=== PATIENT | male | born 1980 ===

== ENCOUNTER 2016-12-13 17:25 | Inpatient (IN) | payer OTHER ==
[2016-12-13] MEDS ORDERED: Iohexol 240 (50 ml) PO ONE (18:16)
[2016-12-13] MEDS ORDERED: Sodium Chloride 0.9% 1,000 ML IV STA ×2 (18:16→21:48)
[2016-12-13] MEDS ORDERED: Piperacillin/Tazobact 4.5 GM in Sodium Chloride 0.9% 100 ML IVPB ONE (18:30)
[2016-12-13 18:40] LABS: BASO # 0.1 K/uL (0.0-0.2); BASO % 0.4 % (0.0-2.0); EOS # 0.1 K/uL (0.0-0.7); EOS % 0.3 % (0.0-4.0); HEMATOCRIT 45.4 % (35.0-51.0); LYMPH # 1.4 K/uL (1.0-4.3); LYMPH % 8.5 % (20.0-40.0); MEAN CELL VOLUME 87.6 fl (80.0-94.0); MEAN CORPUSCULAR HEMOGLOBIN 29.3 pg (27.0-31.0); MEAN CORPUSCULAR HGB CONC 33.4 g/dL (33.0-37.0); MEAN PLATELET VOLUME 7.5 fl (7.2-11.7); MONO # 1.4 K/uL (0.0-0.8); MONO % 8.3 % (0.0-10.0); NEUT # 13.8 K/uL (1.8-7.0); NEUT % 82.5 % (50.0-75.0); NRBC % 0.1 % (0.0-0.0); PLATELET COUNT 333 K/uL (130-400); RED CELL DISTRIBUTION WIDTH 13.6 % (11.5-14.5); WHITE BLOOD COUNT 16.7 K/uL (4.8-10.8)
[2016-12-13 18:45] LABS: VENOUS BLOOD GAS BASE EXCESS 5.4 mmol/L (0.0-2.0); VENOUS BLOOD GAS PCO2 42 mmHg (40-60); VENOUS BLOOD PH 7.46 (7.32-7.43)
[2016-12-13 18:50] LABS: ALB/GLOB RATIO 1.1 (1.0-2.1); ALKALINE PHOSPHATASE 58 U/L (38-126); ALT/SGPT 47 U/L (21-72); AST/SGOT 26 U/L (17-59); BILIRUBIN,TOTAL 0.8 mg/dl (0.2-1.3); BLOOD UREA NITROGEN 12 mg/dl (9-20); CALCIUM 9.5 mg/dL (8.4-10.2); CARBON DIOXIDE 27 mmol/L (22-30); CHLORIDE 99 mmol/L (98-107); GFR AFRICAN-AMERICAN > 60; GLUCOSE,RANDOM 114 mg/dL (75-110); LIPASE 62 U/L (23-300); POTASSIUM 4.4 MMOL/L (3.6-5.0); SODIUM 138 mmol/l (132-148); TOTAL PROTEIN 8.2 G/DL (6.3-8.2)
--- NOTE | 2016-12-13 19:13 | ED PDOC ---
HPI: General Adult Time Seen by Provider: 12/13/16 17:30 Chief Complaint (Nursing): Abdominal Pain Chief Complaint (Provider): Pain, Nausea, Fever History Per: Patient History/Exam Limitations: no limitations Have you had recent travel within the past 21 days to any of the following countries: [place], [place], [place] or [place]?: No Current Symptoms Are (Timing): Still Present Additional Complaint(s): Salinas Dobbs, a 36 year old male, presents to the ED with increased nausea , pain, fever and decreased PO intake. The patient states that she was seen in [place] and was diagnosed with diverticulitis. She states that she has been having fevers, chills, vomiting and a small amount of diarrhea. Past Medical History Reviewed: Historical Data, Nursing Documentation, Vital Signs Vital Signs: Last Vital Signs Temp 98.4 F 12/14/16 07:48 Pulse 73 12/14/16 07:48 Resp 17 12/14/16 07:48 BP 150/87 12/14/16 07:48 Pulse Ox 98 12/14/16 10:35 - Medical History PMH: Diverticulitis Other PMH: Appendicitis - Family History Family History: States: Unknown Family Hx - Social History Current smoker - smoking cessation education provided: No Alcohol: None Drugs: Denies - Home Medications Home Medications: Ambulatory Orders Medication Instructions Recorded No Known Home Med 12/13/16 - Allergies Allergies/Adverse Reactions: Allergies Allergy/AdvReac Type Severity Reaction Status Date / Time No Known Allergies Allergy Verified 12/13/16 17:29 Review of Systems Constitutional: Positive for: Fever, Chills Gastrointestinal: Positive for: Nausea, Vomiting, Diarrhea (small amounts of diarrhea) Physical Exam - Reviewed Nursing Documentation Reviewed: Yes Vital Signs Reviewed: Yes - Physical Exam Appears: Positive for: Non-toxic, No Acute Distress (Appears dehydrated and weak.) Skin: Positive for: Normal Color, Warm, Dry Eye Exam: Positive for: Normal appearance, EOMI, PERRL ENT: Positive for: Normal ENT Inspection Neck: Positive for: Normal, Painless ROM, Supple Cardiovascular/Chest: Positive for: Regular Rate, Rhythm, Chest Non Tender. Negative for: Tachycardia Respiratory: Positive for: Normal Breath Sounds. Negative for: Wheezing, Respiratory Distress Gastrointestinal/Abdominal: Positive for: Bowel Sounds, Soft, Tenderness ( Diffuse abdominal tenderness but more tender on R). Negative for: Mass, Distended, Guarding, Rebound Back: Positive for: Normal Inspection Extremity: Positive for: Normal ROM. Negative for: Tenderness, Deformity, Swelling Neurologic/Psych: Positive for: Alert, Oriented, Gait - Laboratory Results Result Diagrams: 12/14/16 04:30 12/14/16 04:30 - ECG O2 Sat by Pulse Oximetry: 98 (RA) Pulse Ox Interpretation: Normal Medical Decision Making Medical Decision Makin:49 Initial Impression: 36 year old female presenting with increased nausea, pain and fever Initial Plan: * VG shock panel * CT ABD Pelvis PO and IV contrast * Comp Metabolic Panel * Lipase * Udip * CBC * Morphine 4 mg * NS 1000mls 999mls/hr * Pepcid 20mg IVP * Zosyn 4.5gm NS 100m IVPB * Zofran 4mg IV * Blood Culture * Urine culture * Admit 18:17 * Urinalysis * Reevaluation Scribe Attestation Documented by Rosario Claire acting as a scribe for Diana Mratínez MD. Provider Attestation: All medical record entries made by the Scribe were at my direction and personally dictated by me. I have reviewed the chart and agree that the record accurately reflects my personal performance of the history, physical exam, medical decision making, and the department course for this patient. I have also personally directed, reviewed, and agree with the discharge instructions and disposition. Disposition - Clinical Impression Clinical Impression: Diverticulitis, Bowel perforation, Abdominal pain - Patient ED Disposition Is Patient to be Admitted: Transfer of Care - Disposition Disposition: Transfer of Care Disposition Time: 19:00 Condition: GUARDED Patient Signed Over To: Dc Hoyt
[2016-12-13 19:19] LABS: URINE COLOR YELLOW (YELLOW)
[2016-12-13 19:20] LABS: RBC URINE 7 /hpf (0-3); URINE BILIRUBIN NEGATIVE (NEGATIVE); URINE BLOOD MODERATE (NEGATIVE); URINE GLUCOSE (UA) NEGATIVE (Normal); URINE KETONE 80 mg/dL (NEGATIVE); URINE LEUKOCYTE ESTERASE TRACE Leu/uL (Negative); URINE PROTEIN 30 mg/dL (NEGATIVE); WBC URINE 3 /hpf (0-5)
[2016-12-13 19:21] LABS: GRANULAR CAST 1 /lpf (0-1); URINE BACTERIA RARE (<OCC)
[2016-12-13 19:27] LABS: NEUTROPHIL 84 % (42-75); TOTAL CELLS COUNTED 100
[2016-12-13 19:29] LABS: LARGE PLATELETS PRESENT
--- NOTE | 2016-12-13 19:50 | ED PDOC ---
- Laboratory Results Result Diagrams: 12/13/16 18:35 12/13/16 18:35 - ECG O2 Sat by Pulse Oximetry: 98 (RA) - Critical Care Total Time (In Min): 60 Medical Decision Making Medical Decision Making: Patient signed out to provider from Dr. Martínez at [address] scan. 21:20 CT Abdomen and Pelvis With Intravenous Contrast IMPRESSION: 1. Approximately 10 cm segment of small bowel thickening with associated inflammatory/phlegmonous changes is noted, correlate for infectious/ inflammatory enteritis. There is 4.8 cm pocket of pneumoperitoneum/free air and adjacent smaller foci of free air , concerning for small bowel perforation. Clinical correlation and surgical evaluation is recommended. 2. There is a segment of wall thickening at the junction of the sigmoid and descending colon, consistent in appearance with acute diverticulitis. There are small foci of extraluminal air within the adjacent pericolonic mesenteric fat, consistent with a contained diverticular perforation. As an underlying malignancy cannot be entirely excluded, a follow-up examination after a course of treatment is recommended if clinically warranted. The remainder of the findings are as described above. After reading report additional labs were ordered. * CXR * VBG shock panel * EKG * Surgical Consult * 21:[address] Jain (surgical [facility]) awaiting call back from Dr. Mcdonough. 21:[address] Up for hospitalist admission to ICU 22:05 Dr. Mcdonough called back and he was made aware of case and he stated he would speak further with the resident. 23:00 Patient will be admitted for stabilization/tc and possible OR intervention after surgical consult. Dx: Small bowel perforation and Acute Diverticulitis Condition: guarded Scribe Attestation Documented by Rosario Claire acting as a scribe for Dc Hoyt MD. Provider Attestation: All medical record entries made by the Scribe were at my direction and personally dictated by me. I have reviewed the chart and agree that the record accurately reflects my personal performance of the history, physical exam, medical decision making, and the department course for this patient. I have also personally directed, reviewed, and agree with the discharge instructions and disposition. Disposition Discussed With Dr.: Rosanne Up (Dr Mcdonough) Doctor Will See Patient In The: Hospital Counseled Patient/Family Regarding: Studies Performed, Diagnosis - Clinical Impression Clinical Impression: Diverticulitis, Bowel perforation - POA Present On Arrival: None - Disposition Disposition: Admitted as In-Patient Disposition Time: 18:15 Condition: GUARDED
[2016-12-13] MEDS ORDERED: Ciprofloxacin 400mg/200ml D5W 400 MG/200 ML BAG IV STA (21:38)
[2016-12-13] MEDS ORDERED: METRONIDAZOLE IV STA (21:38)
--- NOTE | 2016-12-13 21:59 | CP.PCM.HP ---
History of Present Illness - History of Present Illness History of Present Illness: CC: abd pain HPI: This is a 36 y/o male with HTN and Hx of kidney stones who comes in with abd pain. Patient notes his pain started on Monday after a flight back from a vacation in [place]. He went to [facility] initially, was dx'ed with diverticulitis and d /c'ed with PO antibiotics. His pain acutely got worse today and so he came to the ER. States nothing makes pain better. Has had some nausea. No f/c. States never had diverticulitis before. ROS: 14 systems reviewed and negative otehr than HPI MHx: HTN, kidney stones SHx: None Allergies: NKDA Medications: as per med rec Family Hx: DM2 runs in family Social Hx: Lives with family, no tobacco or EtOH Present on Admission - Present on Admission Any Indicators Present on Admission: No Past Patient History - Past Social History Alcohol: None Drugs: Denies - GASTROINTESTINAL Hx Diverticulitis: Yes - PSYCHIATRIC Hx Substance Use: No - SURGICAL HISTORY Hx Surgeries: No - ANESTHESIA Hx Anesthesia: No Meds Allergies/Adverse Reactions: Allergies Allergy/AdvReac Type Severity Reaction Status Date / Time No Known Allergies Allergy Verified 12/13/16 17:29 Physical Exam - Constitutional Appears: No Acute Distress - Head Exam Head Exam: ATRAUMATIC, NORMOCEPHALIC - Eye Exam Eye Exam: EOMI, PERRL - ENT Exam ENT Exam: Mucous Membranes Moist - Neck Exam Neck exam: Positive for: Full Rom - Respiratory Exam Respiratory Exam: Clear to Auscultation Bilateral, NORMAL BREATHING PATTERN - Cardiovascular Exam Cardiovascular Exam: REGULAR RHYTHM, +S1, +S2 - GI/Abdominal Exam GI & Abdominal Exam: Normal Bowel Sounds, Tenderness - Extremities Exam Extremities exam: Positive for: full ROM, normal inspection - Neurological Exam Neurological exam: Alert, CN II-XII Intact, Oriented x3 - Psychiatric Exam Psychiatric exam: Normal Affect, Normal Mood - Skin Skin Exam: Dry, Warm Results - Vital Signs Recent Vital Signs: Last Vital Signs Temp 98.4 F 12/13/16 17:30 Pulse 93 H 12/13/16 21:43 Resp 18 12/13/16 21:43 BP 142/86 12/13/16 21:43 Pulse Ox 98 12/13/16 21:52 - Labs Result Diagrams: 12/13/16 18:35 12/13/16 18:35 - Imaging and Cardiology CT scan - abdomen Status: Report reviewed by me (diverticulitis with perf and abscess) Assessment & Plan (1) Diverticulitis Assessment and Plan: 36 y/o with bowel perforation and abscess in setting of diverticulitis. -Admit to ICU -Patient pending possible surgery this evening; NPO for now, IVF -Continue Zosyn 3.375 q6h IV -Pain mgmt per scale with IV morphine, Zofran IV for n/v -SCDs for dvt ppx Status: Acute (2) Bowel perforation Status: Acute (3) DVT prophylaxis Status: Acute
[2016-12-13] MEDS ORDERED: Lactated Ringer's 1,000 ML IV SCH (22:00)
--- NOTE | 2016-12-13 22:58 | CP.PCM.CON ---
<Farhad Mcqueen - Last Filed: 12/13/16 22:52> History of Present Illness - History of Present Illness History of Present Illness: Surgery: Dr. Mcdonough CC: Abd pain HPI: 36M w. pmh of HTN and kidney stones present to ED w. abd pain. Pain initially started on Monday while he was flying back from vacation. Upon landing he went to [facility] and was dx w. diverticulitis and d/c w. cipro/flagyl. Initially pt was improving until this AM. Pt had acute worsening of abd pain. Pain is mostly suprapubic and sharp. Pain is constant. Pain is accompanied by Fever/sweat, no chills. Pt denies N/V but has had multiple episodes of diarrhea , non-bloody. Pt does have JACKMAN, no blurred vision, no CP/palpitations, no SOB/ cough, no hematuria/dysuria. In ED CT had findings consistent w. diverticulitis w. contained perforation. PMH: HTN, kidney stones PSH: appendectomy, no prior colonoscopy Meds: MAR reviewed NKDA Social: +ETOH, no tobacco/drugs Fhx: No Fhx of colon CA/colitis Review of Systems - Review of Systems All systems: reviewed and no additional remarkable complaints except (HPI) Past Patient History - Past Social History Alcohol: None Drugs: Denies - CARDIAC Hx Cardiac Disorders: Yes (htn) - PULMONARY Hx Respiratory Disorders: No - NEUROLOGICAL Hx Neurological Disorder: No - HEENT Hx HEENT Problems: No - RENAL Hx Chronic Kidney Disease: No - ENDOCRINE/METABOLIC Hx Endocrine Disorders: No - HEMATOLOGICAL/ONCOLOGICAL Hx Blood Disorders: No - INTEGUMENTARY Hx Dermatological Problems: No - MUSCULOSKELETAL/RHEUMATOLOGICAL Hx Musculoskeletal Disorders: No - GASTROINTESTINAL Hx Diverticulitis: Yes - GENITOURINARY/GYNECOLOGICAL Hx Genitourinary Disorders: No - PSYCHIATRIC Hx Psychophysiologic Disorder: No - SURGICAL HISTORY Hx Surgeries: No - ANESTHESIA Hx Anesthesia: No Meds Allergies/Adverse Reactions: Allergies Allergy/AdvReac Type Severity Reaction Status Date / Time No Known Allergies Allergy Verified 12/13/16 17:29 - Medications Medications: Current Medications Acetaminophen (Tylenol 325mg Tab) 650 mg PO Q6 PRN PRN Reason: Fever >100.4 F Famotidine (Pepcid) 20 mg IVP Q12 [facility] Hydromorphone HCl (Dilaudid) 0.5 mg IVP Q4 PRN PRN Reason: Pain, moderate (4-7) Piperacillin Sod/Tazobactam (Sod 3.375 gm/ Sodium Chloride) 100 mls @ 100 mls/ hr IVPB Q6 [facility] Lactated Ringer's (Lactated Ringer's) 1,000 mls @ 999 mls/hr IV .Q1H1M [facility] Lactated Ringer's (Lactated Ringer's) 1,000 mls @ 125 mls/hr IV .Q8H [facility] Ondansetron HCl (Zofran Inj) 4 mg IVP Q6H PRN PRN Reason: Nausea/Vomiting Physical Exam - Constitutional Appears: Non-toxic, No Acute Distress - Head Exam Head Exam: ATRAUMATIC, NORMOCEPHALIC - Eye Exam Eye Exam: EOMI - ENT Exam ENT Exam: Mucous Membranes Moist, Normal External Ear Exam - Neck Exam Neck exam: Positive for: Full Rom - Respiratory Exam Respiratory Exam: NORMAL BREATHING PATTERN. absent: Accessory Muscle Use, Respiratory Distress - GI/Abdominal Exam GI & Abdominal Exam: Soft, Tenderness (mild suprapubic). absent: Distended, Firm, Guarding, Rebound, Rigid - Extremities Exam Extremities exam: Negative for: calf tenderness, pedal edema - Back Exam Back exam: absent: CVA tenderness (L), CVA tenderness (R) - Neurological Exam Neurological exam: Alert, Oriented x3 - Psychiatric Exam Psychiatric exam: Normal Affect, Normal Mood - Skin Skin Exam: Dry, Normal Color, Warm Results - Vital Signs Recent Vital Signs: Last Vital Signs Temp 99 F 12/13/16 22:17 Pulse 93 H 12/13/16 22:17 Resp 18 12/13/16 22:17 BP 142/86 12/13/16 22:17 Pulse Ox 96 12/13/16 22:01 - Labs Result Diagrams: 12/13/16 18:35 12/13/16 18:35 - Imaging and Cardiology CT scan - abdomen Status: Image reviewed by me, Report reviewed by me Assessment & Plan - Assessment and Plan (Free Text) Assessment: 36M w. sigmoid diverticulitis and contained perforation -Conservative management -NPO -LR bolus x1, then LR maintenance @ 125cc/hr -zosyn -dilaudid -zofran -serial abd exams -GI/DVT prophylaxis -will follow closely -case discussed in detail wJuancho Mcqueen PGY2 <Michael Mcdonough - Last Filed: 12/14/16 09:16> History of Present Illness - History of Present Illness History of Present Illness: Patient was seen and examined at the bedside. Agree with resident's note above Meds - Medications Medications: Current Medications Acetaminophen (Tylenol 325mg Tab) 650 mg PO Q6 PRN PRN Reason: Fever >100.4 F Famotidine (Pepcid) 20 mg IVP Q12 [facility] Hydromorphone HCl (Dilaudid) 0.5 mg IVP Q4 PRN PRN Reason: Pain, moderate (4-7) Piperacillin Sod/Tazobactam (Sod 3.375 gm/ Sodium Chloride) 100 mls @ 100 mls/ hr IVPB Q6 [facility] Last Admin: 12/14/16 04:34 Dose: 100 mls/hr Lactated Ringer's (Lactated Ringer's) 1,000 mls @ 999 mls/hr IV .Q1H1M [facility] Last Admin: 12/14/16 05:51 Dose: Not Given Lactated Ringer's (Lactated Ringer's) 1,000 mls @ 125 mls/hr IV .Q8H [facility] Last Admin: 12/14/16 01:23 Dose: 125 mls/hr Ondansetron HCl (Zofran Inj) 4 mg IVP Q6H PRN PRN Reason: Nausea/Vomiting Results - Vital Signs Recent Vital Signs: Last Vital Signs Temp 98.4 F 12/14/16 07:48 Pulse 73 12/14/16 07:48 Resp 17 12/14/16 07:48 BP 150/87 12/14/16 07:48 Pulse Ox 95 12/14/16 07:48 - Labs Result Diagrams: 12/14/16 04:30 12/14/16 04:30 Labs: Laboratory Results - last 24 hr 12/14/16 12/14/16 04:30 04:30 WBC 14.1 H RBC 4.77 Hgb 13.9 Hct 41.7 MCV 87.4 MCH 29.2 MCHC 33.4 RDW 13.7 Plt Count 311 Sodium 141 Potassium 3.9 Chloride 103 Carbon Dioxide 27 Anion Gap 15 BUN 10 Creatinine 0.9 Est GFR ( Amer) > 60 Est GFR (Non-Af Amer) > 60 Random Glucose 97 Calcium 9.1
[2016-12-13] MEDS: Piperacillin/Tazobact 3.375 GM in Sodium Chloride 0.9% 100 ML IVPB SCH (23:00)
[2016-12-13] MEDS: Lactated Ringer's 1,000 ML IV SCH ×2 (23:27→23:30)
[2016-12-14] MEDS: Lactated Ringer's 1,000 ML IV SCH ×10 (00:47→19:59)
[2016-12-14 04:15] VITALS: BMI 31.1
[2016-12-14] MEDS: Piperacillin/Tazobact 3.375 GM in Sodium Chloride 0.9% 100 ML IVPB SCH ×2 (04:34→09:54)
[2016-12-14 05:28] LABS: HEMATOCRIT 41.7 % (35.0-51.0); MEAN CELL VOLUME 87.4 fl (80.0-94.0); MEAN CORPUSCULAR HEMOGLOBIN 29.2 pg (27.0-31.0); MEAN CORPUSCULAR HGB CONC 33.4 g/dL (33.0-37.0); RED CELL DISTRIBUTION WIDTH 13.7 % (11.5-14.5); WHITE BLOOD COUNT 14.1 K/uL (4.8-10.8)
[2016-12-14 05:42] LABS: BLOOD UREA NITROGEN 10 mg/dl (9-20); CALCIUM 9.1 mg/dL (8.4-10.2); CARBON DIOXIDE 27 mmol/L (22-30); CHLORIDE 103 mmol/L (98-107); GFR AFRICAN-AMERICAN > 60; GLUCOSE,RANDOM 97 mg/dL (75-110); POTASSIUM 3.9 MMOL/L (3.6-5.0); SODIUM 141 mmol/l (132-148)
--- NOTE | 2016-12-14 08:03 | CP.PCM.PN ---
<Marbella Blancas - Last Filed: 12/14/16 08:01> Subjective - Date & Time of Evaluation Date of Evaluation: 12/14/16 Time of Evaluation: 08:01 - Subjective Subjective: General Surgery - Dr. Mcdonough PT [facility]. Pt states his pain is improved this morning from yesterday. He is still having watery diarrhea, normal color. He is NPO. Pt denies any F/C, N /V, SOB/Cp. Objective - Vital Signs/Intake and Output Vital Signs (last 24 hours): Temp Pulse Resp BP Pulse Ox 98.4 F 73 17 150/87 95 12/14/16 07:48 12/14/16 07:48 12/14/16 07:48 12/14/16 07:48 12/14/16 07:48 Intake and Output: 12/14/16 12/14/16 06:59 18:59 Intake Total 1700 Balance 1700 - Medications Medications: Current Medications Acetaminophen (Tylenol 325mg Tab) 650 mg PO Q6 PRN PRN Reason: Fever >100.4 F Famotidine (Pepcid) 20 mg IVP Q12 [facility] Hydromorphone HCl (Dilaudid) 0.5 mg IVP Q4 PRN PRN Reason: Pain, moderate (4-7) Piperacillin Sod/Tazobactam (Sod 3.375 gm/ Sodium Chloride) 100 mls @ 100 mls/ hr IVPB Q6 [facility] Last Admin: 12/14/16 04:34 Dose: 100 mls/hr Lactated Ringer's (Lactated Ringer's) 1,000 mls @ 999 mls/hr IV .Q1H1M [facility] Last Admin: 12/14/16 05:51 Dose: Not Given Lactated Ringer's (Lactated Ringer's) 1,000 mls @ 125 mls/hr IV .Q8H [facility] Last Admin: 12/14/16 01:23 Dose: 125 mls/hr Ondansetron HCl (Zofran Inj) 4 mg IVP Q6H PRN PRN Reason: Nausea/Vomiting - Labs Labs: 12/14/16 04:30 12/14/16 04:30 - Constitutional Appears: No Acute Distress - Head Exam Head Exam: ATRAUMATIC, NORMAL INSPECTION, NORMOCEPHALIC - Eye Exam Eye Exam: Normal appearance - ENT Exam ENT Exam: Mucous Membranes Dry - Respiratory Exam Respiratory Exam: NORMAL BREATHING PATTERN. absent: Respiratory Distress - Cardiovascular Exam Cardiovascular Exam: REGULAR RHYTHM - GI/Abdominal Exam GI & Abdominal Exam: Firm (suprapubic), Guarding, Soft, Tenderness (Suprapubic) . absent: Distended, Rigid, Rebound - Neurological Exam Neurological Exam: Alert, Oriented x3 - Psychiatric Exam Psychiatric exam: Normal Affect, Normal Mood - Skin Skin Exam: Dry, Intact Assessment and Plan - Assessment and Plan (Free Text) Assessment: 36M w. sigmoid diverticulitis and contained perforation -Conservative Tx -Maintain NPO, poss. clear liquids later today or tomorrow -IVF @125/hr -IV Abx: Zosyn -Pain control prn -GI Consult, will need f/u colonoscopy -OOB and Ambulate DW Dr Ceasar Blancas PGY2 <Michael Mcdonough - Last Filed: 12/14/16 09:32> Subjective - Date & Time of Evaluation Time of Evaluation: 09:00 - Subjective Subjective: Patient was seen and examined at the bedside. Agree with resident's note above Objective - Vital Signs/Intake and Output Vital Signs (last 24 hours): Temp Pulse Resp BP Pulse Ox 98.4 F 73 17 150/87 95 12/14/16 07:48 12/14/16 07:48 12/14/16 07:48 12/14/16 07:48 12/14/16 07:48 Intake and Output: 12/14/16 12/14/16 06:59 18:59 Intake Total 1700 Balance 1700 - Medications Medications: Current Medications Acetaminophen (Tylenol 325mg Tab) 650 mg PO Q6 PRN PRN Reason: Fever >100.4 F Famotidine (Pepcid) 20 mg IVP Q12 [facility] Hydromorphone HCl (Dilaudid) 0.5 mg IVP Q4 PRN PRN Reason: Pain, moderate (4-7) Piperacillin Sod/Tazobactam (Sod 3.375 gm/ Sodium Chloride) 100 mls @ 100 mls/ hr IVPB Q6 [facility] Last Admin: 12/14/16 04:34 Dose: 100 mls/hr Lactated Ringer's (Lactated Ringer's) 1,000 mls @ 999 mls/hr IV .Q1H1M [facility] Last Admin: 12/14/16 05:51 Dose: Not Given Lactated Ringer's (Lactated Ringer's) 1,000 mls @ 125 mls/hr IV .Q8H [facility] Last Admin: 12/14/16 01:23 Dose: 125 mls/hr Ondansetron HCl (Zofran Inj) 4 mg IVP Q6H PRN PRN Reason: Nausea/Vomiting - Labs Labs: 12/14/16 04:30 12/14/16 04:30 Assessment and Plan - Assessment and Plan (Free Text) Plan: - Keep NPO - IV fluids - Pain control - Continue Zosyn - GI consult - Repeat labs in am - Will follow
--- NOTE | 2016-12-14 09:15 | RAD ---
HISTORY: admission COMPARISON: No prior. FINDINGS: LUNGS: No active pulmonary disease. PLEURA: No significant pleural effusion identified, no pneumothorax apparent. CARDIOVASCULAR: Normal. OSSEOUS STRUCTURES: No significant abnormalities. VISUALIZED UPPER ABDOMEN: Normal. OTHER FINDINGS: None. IMPRESSION: No active disease.
--- NOTE | 2016-12-14 10:05 | CT ---
PROCEDURE: CT Abdomen and Pelvis with contrast HISTORY: abd pain 6+ months ago patient underwent appendectomy. COMPARISON: None. TECHNIQUE: Contrast dose: 100 cc Omnipaque 300 Radiation dose: Total exam DLP = 1209 mGy-cm. This CT exam was performed using one or more of the following dose reduction techniques: Automated exposure control, adjustment of the mA and/or kV according to patient size, and/or use of iterative reconstruction technique. FINDINGS: LOWER THORAX: Unremarkable. LIVER: Diffuse fatty infiltration of the liver suggested. No gross lesion or ductal dilatation. GALLBLADDER AND BILE DUCTS: Unremarkable. PANCREAS: Unremarkable. No gross lesion or ductal dilatation. SPLEEN: Unremarkable. ADRENALS: Unremarkable. No mass. KIDNEYS AND URETERS: Unremarkable. No hydronephrosis. No solid mass. VASCULATURE: Unremarkable. No aortic aneurysm. BOWEL: The mid to inferior small-bowel loops are grossly abnormal with areas of a amorphous mural thickening, and surrounding mesenteric edema. Small areas of extra luminal air regional to the abnormal small bowel loops which also appear abnormally a contiguous with each other is also suggested. 4 x 2 cm right paracentral anterior intra loop fluid collection is suggested. An early forming abscess here is a consideration. A seroma is another. The sigmoid loops also are abnormal with mural thickening and pericolonic inflammatory changes. These closely approximates the abnormal small bowel loops. Fistulous communication between the colon and small bowel is a consideration given some of the stranding and extra luminal air consistent with "Contained" perforations here. A few diverticuli are present a perforated diverticulitis is also in the differential consideration. The most abnormal a bowel loops however appear small rather than colonic. Inflammatory bowel process is not excluded. The ileum in the cecum however does not appear grossly abnormal. No pericecal fluid collection noted. APPENDIX: Not visualized consistent with its recent removal PERITONEUM: Free fluid/loculated fluid and small pockets of extraluminal air LYMPH NODES: Unremarkable. No enlarged lymph nodes. . BLADDER: Unremarkable. REPRODUCTIVE: Unremarkable. BONES: No acute fracture. OTHER FINDINGS: None. IMPRESSION: Grossly abnormal small large bowel loops in this patient who is 6+ months status post appendectomy. The vast majority of the abnormal bowel loops appear mostly small bowel type -an intrinsic inflammatory bowel pathology here is 1 consideration -nevertheless the pericecal ileum is unremarkable. A sigmoid diverticulosis with inferred concomitant diverticulitis with perforation and fistulous tract to the small bowel loops also needs to be considered. Within the right anterior para central abnormal small-bowel loops is a 5 cm interloop fluid collection -an early abscess here needs to be considered. Surgical consultation recommended. Surgical consultation recommendation and preliminary report provided by Micaela watters
--- NOTE | 2016-12-14 11:55 | CP.PCM.PN ---
Subjective - Date & Time of Evaluation Date of Evaluation: 12/14/16 Time of Evaluation: 11:30 - Subjective Subjective: No fever Abd Pain better no nausea nor vomiting no CP no SOB no cough Objective - Vital Signs/Intake and Output Vital Signs (last 24 hours): Temp Pulse Resp BP Pulse Ox 98.4 F 73 17 150/87 98 12/14/16 07:48 12/14/16 07:48 12/14/16 07:48 12/14/16 07:48 12/14/16 10:36 Intake and Output: 12/14/16 12/14/16 06:59 18:59 Intake Total 1700 Balance 1700 - Medications Medications: Current Medications Acetaminophen (Tylenol 325mg Tab) 650 mg PO Q6 PRN PRN Reason: Fever >100.4 F Last Admin: 12/14/16 09:35 Dose: 650 mg Famotidine (Pepcid) 20 mg IVP Q12 [facility] Last Admin: 12/14/16 09:54 Dose: 20 mg Hydromorphone HCl (Dilaudid) 0.5 mg IVP Q4 PRN PRN Reason: Pain, moderate (4-7) Piperacillin Sod/Tazobactam (Sod 3.375 gm/ Sodium Chloride) 100 mls @ 100 mls/ hr IVPB Q6 [facility] Last Admin: 12/14/16 09:54 Dose: 100 mls/hr Lactated Ringer's (Lactated Ringer's) 1,000 mls @ 999 mls/hr IV .Q1H1M [facility] Last Admin: 12/14/16 09:18 Dose: 999 mls/hr Lactated Ringer's (Lactated Ringer's) 1,000 mls @ 125 mls/hr IV .Q8H [facility] Last Admin: 12/14/16 09:56 Dose: 125 mls/hr Ondansetron HCl (Zofran Inj) 4 mg IVP Q6H PRN PRN Reason: Nausea/Vomiting - Labs Labs: 12/14/16 04:30 12/14/16 04:30 - Constitutional Appears: No Acute Distress - Head Exam Head Exam: NORMAL INSPECTION, NORMOCEPHALIC - Eye Exam Eye Exam: EOMI, Normal appearance, PERRL Pupil Exam: NORMAL ACCOMODATION - ENT Exam ENT Exam: Mucous Membranes Dry, Normal External Ear Exam - Neck Exam Neck Exam: Full ROM. absent: Meningismus - Respiratory Exam Respiratory Exam: NORMAL BREATHING PATTERN. absent: Respiratory Distress - Cardiovascular Exam Cardiovascular Exam: REGULAR RHYTHM, +S1, +S2 - GI/Abdominal Exam GI & Abdominal Exam: Soft, Tenderness (tenderness lower abdomen), Normal Bowel Sounds - Extremities Exam Extremities Exam: Full ROM, Normal Capillary Refill. absent: Calf Tenderness - Back Exam Back Exam: Full ROM. absent: CVA tenderness (L), CVA tenderness (R) - Neurological Exam Neurological Exam: Alert, Awake, CN II-XII Intact, Oriented x3 Neuro motor strength exam: Left Upper Extremity: 5, Right Upper Extremity: 5, Left Lower Extremity: 5, Right Lower Extremity: 5 - Psychiatric Exam Psychiatric exam: Normal Affect, Normal Mood - Skin Skin Exam: Dry, Intact, Normal Color, Warm Assessment and Plan - Assessment and Plan (Free Text) Assessment: 36 y/o gent with , no significant PMH, started having abdominal pain 5 days ago , went to [facility] and was diagnosed to have Diverticulitis and was sent home on PO antibiotics, came to our ED bec of severe abd pain. CT of abdomen : Grossly abnormal small large bowel loops in this patient who is 6+ months status post appendectomy. The vast majority of the abnormal bowel loops appear mostly small bowel type -an intrinsic inflammatory bowel pathology here is 1 consideration -nevertheless the pericecal ileum is unremarkable. A sigmoid diverticulosis with inferred concomitant diverticulitis with perforation and fistulous tract to the small bowel loops also needs to be considered. Within the right anterior para central abnormal small-bowel loops is a 5 cm interloop fluid collection -an early abscess here needs to be considered. (1) Diverticulitis with abscess and contained perforation - pt is being monitored in ICU - NPO , IVF hydration -Continue Zosyn IV - Surgery consulted- rec to cont abx, no surgical intervention -Pain mgmt per scale with IV morphine, Zofran IV for n/v (2) DVT prophylaxis lovenox
--- NOTE | 2016-12-14 15:36 | CARD ---
APPROVED REPORT EKG Measurement Heart [id number] <Conclusion> Normal sinus rhythm Voltage criteria for left ventricular hypertrophy Abnormal ECG
[2016-12-14] MEDS: Piperacillin/Tazobact 4.5 GM in Sodium Chloride 0.9% 100 ML IVPB SCH ×2 (17:09→21:28)
--- NOTE | 2016-12-14 22:07 | CP.CCUPN ---
CCU Subjective - Physician Review Subjective (Free Text): Awake and alert, denies any abdominal pain today, remains NPO as per Surg team. Denies fevers, chills, rigors. No other distress noted. Hemodynamic parameters have been stable. CCU Objective - Vital Signs / Intake & Output Vital Signs (Last 4 hours): Vital Signs Temp Pulse Resp BP Pulse Ox 12/14/16 20:00 80 97 H 148/88 17 L 12/14/16 19:50 98.5 F 77 27 H 143/79 96 Intake and Output (Last 8hrs): Intake & Output 12/14/16 12/14/16 12/14/16 06:59 14:59 22:59 Intake Total 1700 250 Balance 1700 250 Weight 243 lb Intake: IV 1500 250 Intake, Piggyback 200 Other: # Voids Urine, Voided 1 # Bowel Movements 2 - Physical Exam Head: Positive for: Normocephalic Pupils: Positive for: PERRL Extroacular Muscles: Positive for: EOMI Conjunctiva: Positive for: Normal Ears: Positive for: Normal Mouth: Positive for: Moist Mucous Membranes Pharnyx: Positive for: Normal Neck: Positive for: Normal Range of Motion. Negative for: JVD Respiratory/Chest: Positive for: Clear to Auscultation Cardiovascular: Positive for: Regular Rate and Rhythm. Negative for: Murmurs, Rub Abdomen: Positive for: Normal Bowel Sounds. Negative for: Tenderness, Distention, Peritoneal Signs, Rebound, Guarding Lower Extremity: Positive for: Normal Inspection, NORMAL PULSES. Negative for: Edema, CALF TENDERNESS Neurological: Positive for: Motor Func Grossly Intact, Normal Sensory Function Skin: Positive for: Warm. Negative for: Rashes Psychiatric: Positive for: Alert, Oriented x 3 - Medications Active Medications: Active Medications Generic Name Dose Route Start Last Admin Trade Name Freq PRN Reason Stop Dose Admin Acetaminophen 650 mg 12/13/16 22:50 12/14/16 09:35 Tylenol 325mg Tab PO 650 mg Q6 PRN Administration Fever >100.4 F Enoxaparin Sodium 40 mg 12/15/16 09:00 Lovenox SC DAILY [facility] Protocol Famotidine 20 mg 12/14/16 09:00 12/14/16 20:03 Pepcid IVP 20 mg Q12 JORDON Administration Hydromorphone HCl 0.5 mg 12/13/16 22:48 Dilaudid IVP Q4 PRN Pain, moderate (4-7) Lactated Ringer's 1,000 mls @ 999 mls/hr 12/13/16 22:45 12/14/16 09:18 Lactated Ringer's IV 999 mls/hr .Q1H1M J[facility]ON Administration Lactated Ringer's 1,000 mls @ 125 mls/hr 12/13/16 23:00 12/14/16 19:59 Lactated Ringer's IV 125 mls/hr .Q8H J[facility] Administration Piperacillin Sod/Tazobactam 100 mls @ 100 mls/hr 12/14/16 16:00 12/14/16 21: 28 Sod 4.5 gm/ Sodium Chloride IVPB 100 mls/hr Q6 JORDON Administration Ondansetron HCl 4 mg 12/13/16 21:53 Zofran Inj IVP Q6H PRN Nausea/Vomiting - Patient Studies Lab Studies: Lab Studies 12/14/16 12/14/16 Range/Units 04:30 04:30 WBC 14.1 H (4.8-10.8) K/uL RBC 4.77 (4.40-5.90) Mil/uL Hgb 13.9 (12.0-18.0) g/dL Hct 41.7 (35.0-51.0) % MCV 87.4 (80.0-94.0) fl MCH 29.2 (27.0-31.0) pg MCHC 33.4 (33.0-37.0) g/dL RDW 13.7 (11.5-14.5) % Plt Count 311 (130-400) K/uL Sodium 141 (132-148) mmol/l Potassium 3.9 (3.6-5.0) MMOL/L Chloride 103 (98-107) mmol/L Carbon Dioxide 27 (22-30) mmol/L Anion Gap 15 (10-20) BUN 10 (9-20) mg/dl Creatinine 0.9 (0.8-1.5) mg/dL Est GFR ( Amer) > 60 Est GFR (Non-Af Amer) > 60 Random Glucose 97 (75-110) mg/dL Calcium 9.1 (8.4-10.2) mg/dL Laboratory Results - last 24 hr 12/14/16 12/14/16 04:30 04:30 WBC 14.1 H RBC 4.77 Hgb 13.9 Hct 41.7 MCV 87.4 MCH 29.2 MCHC 33.4 RDW 13.7 Plt Count 311 Sodium 141 Potassium 3.9 Chloride 103 Carbon Dioxide 27 Anion Gap 15 BUN 10 Creatinine 0.9 Est GFR ( Amer) > 60 Est GFR (Non-Af Amer) > 60 Random Glucose 97 Calcium 9.1 Radiology Interpretations (Free Text): CT AP results reviewed. Critical Care Progress Note - Extremities/Vascular Does the Patient have a Central Venous Catheter?: No Does the Patient need a Central Venous Catheter?: No Does the Patient have a Correa Catheter?: No Does the Patient need a Correa Catheter?: No - Prophylaxis GI Prophylaxis GI: Pepsid - Prophylaxis DVT Prophylaxis DVT: Lovenox, SCDs - Nutrition Nutrition: Nutrition Category Date Time Status NPO Diet [DIET] Diets 12/13/16 Breakfast Active Assessment/Plan - Assessment and Plan (Free Text) Assessment: 1. Sigmoid Diverticulitis with contained Diverticular abscess. No major perforation as per Surgeon. 2. Hypertension by history Plan: 1. Conservative mgmt and close observation for now. 2. Consider increasing empiric Zosyn dose to full 4.5gm IV Q6H dosing fro intra -abdominal infection. 3. IVF hydration, watch for abdominal fluid sequestration. 4. Observe BP trends, would not treat unless sustained MAP elevation above 110.
[2016-12-15] MEDS: Piperacillin/Tazobact 4.5 GM in Sodium Chloride 0.9% 100 ML IVPB SCH ×4 (04:09→21:41)
[2016-12-15 05:06] LABS: BASO # 0.1 K/uL (0.0-0.2); BASO % 0.4 % (0.0-2.0); EOS # 0.3 K/uL (0.0-0.7); LYMPH # 2.2 K/uL (1.0-4.3); LYMPH % 15.2 % (20.0-40.0); MEAN CELL VOLUME 87.7 fl (80.0-94.0); MEAN CORPUSCULAR HEMOGLOBIN 29.4 pg (27.0-31.0); MEAN CORPUSCULAR HGB CONC 33.6 g/dL (33.0-37.0); MEAN PLATELET VOLUME 7.8 fl (7.2-11.7); MONO % 7.2 % (0.0-10.0); NEUT # 10.6 K/uL (1.8-7.0); NEUT % 75.2 % (50.0-75.0); RED CELL DISTRIBUTION WIDTH 13.4 % (11.5-14.5); WHITE BLOOD COUNT 14.2 K/uL (4.8-10.8)
[2016-12-15 05:17] LABS: ALB/GLOB RATIO 1.1 (1.0-2.1); ALKALINE PHOSPHATASE 47 U/L (38-126); ALT/SGPT 40 U/L (21-72); AST/SGOT 27 U/L (17-59); BILIRUBIN,TOTAL 0.6 mg/dl (0.2-1.3); BLOOD UREA NITROGEN 11 mg/dl (9-20); CALCIUM 9.2 mg/dL (8.4-10.2); CARBON DIOXIDE 27 mmol/L (22-30); CHLORIDE 104 mmol/L (98-107); GFR AFRICAN-AMERICAN > 60; GLUCOSE,RANDOM 90 mg/dL (75-110); POTASSIUM 4.1 MMOL/L (3.6-5.0); SODIUM 143 mmol/l (132-148); TOTAL PROTEIN 7.3 G/DL (6.3-8.2)
[2016-12-15] MEDS: Enoxaparin 40 mg Syringe SC SCH (09:33)
--- NOTE | 2016-12-15 11:16 | CP.PCM.PN ---
Subjective - Date & Time of Evaluation Date of Evaluation: 12/15/16 Time of Evaluation: 11:00 - Subjective Subjective: No fever mild abdominal pain + tenderness on the lower abdomen and some discomfort when he turns or coughs no vomiting no CP no SOB Pt requesting for copy of CT scan films Objective - Vital Signs/Intake and Output Vital Signs (last 24 hours): Temp Pulse Resp BP Pulse Ox 98.4 F 76 18 135/76 96 12/15/16 07:47 12/15/16 07:47 12/15/16 07:47 12/15/16 07:47 12/15/16 07:47 Intake and Output: 12/15/16 12/15/16 06:59 18:59 Intake Total 1450 125 Output Total 750 Balance 700 125 - Medications Medications: Current Medications Acetaminophen (Tylenol 325mg Tab) 650 mg PO Q6 PRN PRN Reason: Fever >100.4 F Last Admin: 12/14/16 09:35 Dose: 650 mg Enoxaparin Sodium (Lovenox) 40 mg SC DAILY [facility] PRN Reason: Protocol Last Admin: 12/15/16 09:33 Dose: 40 mg Famotidine (Pepcid) 20 mg IVP Q12 [facility] Last Admin: 12/15/16 08:19 Dose: 20 mg Hydromorphone HCl (Dilaudid) 0.5 mg IVP Q4 PRN PRN Reason: Pain, moderate (4-7) Lactated Ringer's (Lactated Ringer's) 1,000 mls @ 999 mls/hr IV .Q1H1M [facility] Last Admin: 12/14/16 09:18 Dose: 999 mls/hr Lactated Ringer's (Lactated Ringer's) 1,000 mls @ 125 mls/hr IV .Q8H [facility] Last Admin: 12/14/16 19:59 Dose: 125 mls/hr Piperacillin Sod/Tazobactam (Sod 4.5 gm/ Sodium Chloride) 100 mls @ 100 mls/hr IVPB Q6 [facility] Last Admin: 12/15/16 09:24 Dose: 100 mls/hr Ondansetron HCl (Zofran Inj) 4 mg IVP Q6H PRN PRN Reason: Nausea/Vomiting - Labs Labs: 12/15/16 04:30 12/15/16 04:30 - Constitutional Appears: No Acute Distress - Head Exam Head Exam: NORMAL INSPECTION, NORMOCEPHALIC - Eye Exam Eye Exam: EOMI, Normal appearance, PERRL Pupil Exam: NORMAL ACCOMODATION - ENT Exam ENT Exam: Mucous Membranes Dry, Normal External Ear Exam - Neck Exam Neck Exam: Full ROM. absent: Meningismus - Respiratory Exam Respiratory Exam: NORMAL BREATHING PATTERN. absent: Respiratory Distress - Cardiovascular Exam Cardiovascular Exam: REGULAR RHYTHM, +S1, +S2 - GI/Abdominal Exam GI & Abdominal Exam: Soft, Tenderness (tenderness lower abdomen), Normal Bowel Sounds no rebound - Extremities Exam Extremities Exam: Full ROM, Normal Capillary Refill. absent: Calf Tenderness - Back Exam Back Exam: Full ROM. absent: CVA tenderness (L), CVA tenderness (R) - Neurological Exam Neurological Exam: Alert, Awake, CN II-XII Intact, Oriented x3 Neuro motor strength exam: Left Upper Extremity: 5, Right Upper Extremity: 5, Left Lower Extremity: 5, Right Lower Extremity: 5 - Psychiatric Exam Psychiatric exam: Normal Affect, Normal Mood - Skin Skin Exam: Dry, Intact, Normal Color, Warm Assessment and Plan - Assessment and Plan (Free Text) Assessment: 36 y/o gent with , no significant PMH, started having abdominal pain 5 days ago , went to [facility] and was diagnosed to have Diverticulitis and was sent home on PO antibiotics, came to our ED bec of severe abd pain. CT of abdomen : Grossly abnormal small large bowel loops in this patient who is 6+ months status post appendectomy. The vast majority of the abnormal bowel loops appear mostly small bowel type -an intrinsic inflammatory bowel pathology here is 1 consideration -nevertheless the pericecal ileum is unremarkable. A sigmoid diverticulosis with inferred concomitant diverticulitis with perforation and fistulous tract to the small bowel loops also needs to be considered. Within the right anterior para central abnormal small-bowel loops is a 5 cm interloop fluid collection -an early abscess here needs to be considered. (1) Diverticulitis with abscess and contained perforation - pt is being monitored in ICU -Keep NPO , IVF hydration -Continue Zosyn IV - WBC ct 16.7 now down to 14.2 - Surgery consulted- rec to cont abx, no surgical intervention - GI consulted -Pain mgmt per scale with IV morphine, Zofran IV for n/v - Discussed case with Dr Mcdonough - he does not agree with CT scan finding of SB fistula - to hoim CT shows marked colon inflammation with contained perforation- rec to rpt imaging/CT scan on Monday (2) DVT prophylaxis lovenox
--- NOTE | 2016-12-15 11:28 | CP.PCM.PN ---
Subjective - Date & Time of Evaluation Date of Evaluation: 12/15/16 Time of Evaluation: 11:00 - Subjective Subjective: Patient was seen and examined at the bedside. States that feels much better. Reports very minimal pain. Objective - Vital Signs/Intake and Output Vital Signs (last 24 hours): Temp Pulse Resp BP Pulse Ox 98.4 F 76 18 135/76 96 12/15/16 07:47 12/15/16 07:47 12/15/16 07:47 12/15/16 07:47 12/15/16 07:47 Intake and Output: 12/15/16 12/15/16 06:59 18:59 Intake Total 1450 125 Output Total 750 Balance 700 125 - Medications Medications: Current Medications Acetaminophen (Tylenol 325mg Tab) 650 mg PO Q6 PRN PRN Reason: Fever >100.4 F Last Admin: 12/14/16 09:35 Dose: 650 mg Enoxaparin Sodium (Lovenox) 40 mg SC DAILY [facility] PRN Reason: Protocol Last Admin: 12/15/16 09:33 Dose: 40 mg Famotidine (Pepcid) 20 mg IVP Q12 [facility] Last Admin: 12/15/16 08:19 Dose: 20 mg Hydromorphone HCl (Dilaudid) 0.5 mg IVP Q4 PRN PRN Reason: Pain, moderate (4-7) Lactated Ringer's (Lactated Ringer's) 1,000 mls @ 999 mls/hr IV .Q1H1M [facility] Last Admin: 12/14/16 09:18 Dose: 999 mls/hr Lactated Ringer's (Lactated Ringer's) 1,000 mls @ 125 mls/hr IV .Q8H [facility] Last Admin: 12/14/16 19:59 Dose: 125 mls/hr Piperacillin Sod/Tazobactam (Sod 4.5 gm/ Sodium Chloride) 100 mls @ 100 mls/hr IVPB Q6 [facility] Last Admin: 12/15/16 09:24 Dose: 100 mls/hr Ondansetron HCl (Zofran Inj) 4 mg IVP Q6H PRN PRN Reason: Nausea/Vomiting - Labs Labs: 12/15/16 04:30 12/15/16 04:30 - Constitutional Appears: Well, Non-toxic, No Acute Distress - Head Exam Head Exam: ATRAUMATIC, NORMAL INSPECTION, NORMOCEPHALIC - Eye Exam Eye Exam: EOMI, Normal appearance, PERRL Pupil Exam: NORMAL ACCOMODATION, PERRL - ENT Exam ENT Exam: Mucous Membranes Moist, Normal Exam - Neck Exam Neck Exam: Full ROM, Normal Inspection - Respiratory Exam Respiratory Exam: Clear to Ausculation Bilateral, NORMAL BREATHING PATTERN - Cardiovascular Exam Cardiovascular Exam: REGULAR RHYTHM, +S1, +S2 - GI/Abdominal Exam GI & Abdominal Exam: Soft, Normal Bowel Sounds Additional comments: Mildly tender in the lower abdomen, ND, no rebound, no guarding - Rectal Exam Rectal Exam: Deferred - Extremities Exam Extremities Exam: Full ROM, Normal Inspection - Back Exam Back Exam: NORMAL INSPECTION - Neurological Exam Neurological Exam: Alert, Awake, CN II-XII Intact, Oriented x3 - Psychiatric Exam Psychiatric exam: Normal Affect, Normal Mood - Skin Skin Exam: Dry, Intact, Normal Color, Warm Assessment and Plan - Assessment and Plan (Free Text) Assessment: 36 y.o. male with diverticulitis with localized walled off perforation Plan: - Keep NPO - IV fluids - Pain control - Continue antibiotics - DVT ppx - Repeat labs in am - Will follow
[2016-12-15] MEDS: Lactated Ringer's 1,000 ML IV SCH (21:45)
[2016-12-16] MEDS: Lactated Ringer's 1,000 ML IV SCH ×4 (00:05→22:19)
[2016-12-16] MEDS: Piperacillin/Tazobact 4.5 GM in Sodium Chloride 0.9% 100 ML IVPB SCH ×4 (04:49→22:09)
[2016-12-16 05:22] LABS: BASO # 0.1 K/uL (0.0-0.2); BASO % 0.6 % (0.0-2.0); EOS # 0.3 K/uL (0.0-0.7); EOS % 2.8 % (0.0-4.0); HEMATOCRIT 41.8 % (35.0-51.0); LYMPH # 2.3 K/uL (1.0-4.3); LYMPH % 19.5 % (20.0-40.0); MEAN CELL VOLUME 87.1 fl (80.0-94.0); MEAN CORPUSCULAR HEMOGLOBIN 28.6 pg (27.0-31.0); MEAN CORPUSCULAR HGB CONC 32.8 g/dL (33.0-37.0); MEAN PLATELET VOLUME 7.7 fl (7.2-11.7); MONO % 8.1 % (0.0-10.0); NEUT # 8.1 K/uL (1.8-7.0); WHITE BLOOD COUNT 11.8 K/uL (4.8-10.8)
[2016-12-16 05:35] LABS: ALKALINE PHOSPHATASE 46 U/L (38-126); ALT/SGPT 41 U/L (21-72); AST/SGOT 25 U/L (17-59); BILIRUBIN,TOTAL 0.5 mg/dl (0.2-1.3); BLOOD UREA NITROGEN 9 mg/dl (9-20); CALCIUM 9.3 mg/dL (8.4-10.2); CARBON DIOXIDE 27 mmol/L (22-30); CHLORIDE 102 mmol/L (98-107); GFR AFRICAN-AMERICAN > 60; GLUCOSE,RANDOM 83 mg/dL (75-110); POTASSIUM 4.4 MMOL/L (3.6-5.0); SODIUM 141 mmol/l (132-148); TOTAL PROTEIN 7.7 G/DL (6.3-8.2)
--- NOTE | 2016-12-16 08:33 | CP.PCM.PN ---
Subjective - Date & Time of Evaluation Date of Evaluation: 12/16/16 Time of Evaluation: 06:50 Objective - Vital Signs/Intake and Output Vital Signs (last 24 hours): Temp Pulse Resp BP Pulse Ox 98.6 F 68 24 150/92 H 96 12/16/16 07:44 12/16/16 07:44 12/16/16 07:44 12/16/16 07:44 12/16/16 07:44 Intake and Output: 12/16/16 12/16/16 06:59 18:59 Intake Total 1325 Output Total 300 225 Balance 1025 -225 - Medications Medications: Current Medications Acetaminophen (Tylenol 325mg Tab) 650 mg PO Q6 PRN PRN Reason: Fever >100.4 F Last Admin: 12/14/16 09:35 Dose: 650 mg Enoxaparin Sodium (Lovenox) 40 mg SC DAILY [facility] PRN Reason: Protocol Last Admin: 12/15/16 09:33 Dose: 40 mg Famotidine (Pepcid) 20 mg IVP Q12 [facility] Last Admin: 12/15/16 21:43 Dose: 20 mg Hydromorphone HCl (Dilaudid) 0.5 mg IVP Q4 PRN PRN Reason: Pain, moderate (4-7) Lactated Ringer's (Lactated Ringer's) 1,000 mls @ 125 mls/hr IV .Q8H [facility] Last Admin: 12/16/16 06:10 Dose: Not Given Piperacillin Sod/Tazobactam (Sod 4.5 gm/ Sodium Chloride) 100 mls @ 100 mls/hr IVPB Q6 [facility] Last Admin: 12/16/16 04:49 Dose: 100 mls/hr Ondansetron HCl (Zofran Inj) 4 mg IVP Q6H PRN PRN Reason: Nausea/Vomiting - Labs Labs: 12/16/16 04:30 12/16/16 04:30
[2016-12-16] MEDS: Enoxaparin 40 mg Syringe SC SCH (09:06)
--- NOTE | 2016-12-16 10:25 | CP.PCM.PN ---
Subjective - Date & Time of Evaluation Date of Evaluation: 12/16/16 Time of Evaluation: 10:00 - Subjective Subjective: Patient was seen and examined at the bedside. Currently denies any abdominal pain. Objective - Vital Signs/Intake and Output Vital Signs (last 24 hours): Temp Pulse Resp BP Pulse Ox 98.6 F 68 24 150/92 H 96 12/16/16 07:44 12/16/16 07:44 12/16/16 07:44 12/16/16 07:44 12/16/16 07:44 Intake and Output: 12/16/16 12/16/16 06:59 18:59 Intake Total 1325 Output Total 300 225 Balance 1025 -225 - Medications Medications: Current Medications Acetaminophen (Tylenol 325mg Tab) 650 mg PO Q6 PRN PRN Reason: Fever >100.4 F Last Admin: 12/14/16 09:35 Dose: 650 mg Enoxaparin Sodium (Lovenox) 40 mg SC DAILY [facility] PRN Reason: Protocol Last Admin: 12/16/16 09:06 Dose: 40 mg Famotidine (Pepcid) 20 mg IVP Q12 [facility] Last Admin: 12/16/16 09:06 Dose: 20 mg Hydromorphone HCl (Dilaudid) 0.5 mg IVP Q4 PRN PRN Reason: Pain, moderate (4-7) Lactated Ringer's (Lactated Ringer's) 1,000 mls @ 125 mls/hr IV .Q8H [facility] Last Admin: 12/16/16 09:08 Dose: 125 mls/hr Piperacillin Sod/Tazobactam (Sod 4.5 gm/ Sodium Chloride) 100 mls @ 100 mls/hr IVPB Q6 [facility] Last Admin: 12/16/16 09:06 Dose: 100 mls/hr Ondansetron HCl (Zofran Inj) 4 mg IVP Q6H PRN PRN Reason: Nausea/Vomiting - Labs Labs: 12/16/16 04:30 12/16/16 04:30 - Constitutional Appears: Well, Non-toxic, No Acute Distress - Head Exam Head Exam: ATRAUMATIC, NORMAL INSPECTION, NORMOCEPHALIC - Eye Exam Eye Exam: EOMI, Normal appearance, PERRL Pupil Exam: NORMAL ACCOMODATION, PERRL - ENT Exam ENT Exam: Mucous Membranes Moist, Normal Exam - Neck Exam Neck Exam: Full ROM, Normal Inspection - Respiratory Exam Respiratory Exam: Clear to Ausculation Bilateral, NORMAL BREATHING PATTERN - Cardiovascular Exam Cardiovascular Exam: REGULAR RHYTHM, +S1, +S2 - GI/Abdominal Exam GI & Abdominal Exam: Soft, Normal Bowel Sounds Additional comments: NT, ND, no rebound, no guarding - Rectal Exam Rectal Exam: Deferred - Extremities Exam Extremities Exam: Full ROM, Normal Inspection - Neurological Exam Neurological Exam: Alert, Awake, CN II-XII Intact, Oriented x3 - Psychiatric Exam Psychiatric exam: Normal Affect, Normal Mood - Skin Skin Exam: Dry, Intact, Normal Color, Warm Assessment and Plan - Assessment and Plan (Free Text) Assessment: 36 y.o. male with localized diverticulitis with perforation that sealed off Plan: - Start clear liquid diet - Pain control - IV fluids - Continue antibiotics - DVT ppx - Repeat labs in am - Can be transferred to the floor - Will follow
--- NOTE | 2016-12-16 11:33 | CP.PCM.PN ---
Subjective - Date & Time of Evaluation Date of Evaluation: 12/16/16 Time of Evaluation: 11:00 - Subjective Subjective: No fever fels better very minimal abd pain WBC Ct down to 11k no CP no SOB Objective - Vital Signs/Intake and Output Vital Signs (last 24 hours): Temp Pulse Resp BP Pulse Ox 98.6 F 68 24 150/92 H 96 12/16/16 07:44 12/16/16 07:44 12/16/16 07:44 12/16/16 07:44 12/16/16 07:44 Intake and Output: 12/16/16 12/16/16 06:59 18:59 Intake Total 1325 Output Total 300 225 Balance 1025 -225 - Medications Medications: Current Medications Acetaminophen (Tylenol 325mg Tab) 650 mg PO Q6 PRN PRN Reason: Fever >100.4 F Last Admin: 12/14/16 09:35 Dose: 650 mg Enoxaparin Sodium (Lovenox) 40 mg SC DAILY [facility] PRN Reason: Protocol Last Admin: 12/16/16 09:06 Dose: 40 mg Famotidine (Pepcid) 20 mg IVP Q12 [facility] Last Admin: 12/16/16 09:06 Dose: 20 mg Hydromorphone HCl (Dilaudid) 0.5 mg IVP Q4 PRN PRN Reason: Pain, moderate (4-7) Lactated Ringer's (Lactated Ringer's) 1,000 mls @ 125 mls/hr IV .Q8H [facility] Last Admin: 12/16/16 09:08 Dose: 125 mls/hr Piperacillin Sod/Tazobactam (Sod 4.5 gm/ Sodium Chloride) 100 mls @ 100 mls/hr IVPB Q6 [facility] Last Admin: 12/16/16 09:06 Dose: 100 mls/hr Ondansetron HCl (Zofran Inj) 4 mg IVP Q6H PRN PRN Reason: Nausea/Vomiting - Labs Labs: 12/16/16 04:30 12/16/16 04:30 - Constitutional Appears: No Acute Distress - Head Exam Head Exam: NORMAL INSPECTION, NORMOCEPHALIC - Eye Exam Eye Exam: EOMI, Normal appearance, PERRL Pupil Exam: NORMAL ACCOMODATION - ENT Exam ENT Exam: Mucous Membranes Dry, Normal External Ear Exam - Neck Exam Neck Exam: Full ROM. absent: Meningismus - Respiratory Exam Respiratory Exam: NORMAL BREATHING PATTERN. absent: Respiratory Distress - Cardiovascular Exam Cardiovascular Exam: REGULAR RHYTHM, +S1, +S2 - GI/Abdominal Exam GI & Abdominal Exam: Soft, Tenderness (tenderness lower abdomen), Normal Bowel Sounds no rebound - Extremities Exam Extremities Exam: Full ROM, Normal Capillary Refill. absent: Calf Tenderness - Back Exam Back Exam: Full ROM. absent: CVA tenderness (L), CVA tenderness (R) - Neurological Exam Neurological Exam: Alert, Awake, CN II-XII Intact, Oriented x3 Neuro motor strength exam: Left Upper Extremity: 5, Right Upper Extremity: 5, Left Lower Extremity: 5, Right Lower Extremity: 5 - Psychiatric Exam Psychiatric exam: Normal Affect, Normal Mood - Skin Skin Exam: Dry, Intact, Normal Color, Warm Assessment and Plan - Assessment and Plan (Free Text) Assessment: 36 y/o gent with , no significant PMH, started having abdominal pain 5 days ago , went to [facility] and was diagnosed to have Diverticulitis and was sent home on PO antibiotics, came to our ED bec of severe abd pain. CT of abdomen : Grossly abnormal small large bowel loops in this patient who is 6+ months status post appendectomy. The vast majority of the abnormal bowel loops appear mostly small bowel type -an intrinsic inflammatory bowel pathology here is 1 consideration -nevertheless the pericecal ileum is unremarkable. A sigmoid diverticulosis with inferred concomitant diverticulitis with perforation and fistulous tract to the small bowel loops also needs to be considered. Within the right anterior para central abnormal small-bowel loops is a 5 cm interloop fluid collection -an early abscess here needs to be considered. (1) Diverticulitis with abscess and contained perforation - pt is being monitored in ICU- pt has been stable, afebrile - will transfer to Med Surg - IVF hydration - start Clear Liqui diet today as rec by hank Mcdonough -Continue Zosyn IV - WBC ct 16.7 now down to 11 - Surgery consulted- rec to cont abx, no surgical intervention - GI consulted- plan for Colonoscopy as outpt -Pain mgmt per scale with IV morphine, Zofran IV for n/v - Discussed case with Dr Mcdonough - he does not agree with CT scan finding of SB fistula - states CT shows marked colon inflammation with contained perforation - rec to rpt imaging/CT scan on Monday (2) DVT prophylaxis lovenox
[2016-12-17] MEDS: Lactated Ringer's 1,000 ML IV SCH ×2 (01:25→06:14)
[2016-12-17] MEDS: Piperacillin/Tazobact 4.5 GM in Sodium Chloride 0.9% 100 ML IVPB SCH ×2 (04:00→09:41)
[2016-12-17 06:45] LABS: BASO # 0.1 K/uL (0.0-0.2); BASO % 0.9 % (0.0-2.0); EOS # 0.4 K/uL (0.0-0.7); EOS % 3.4 % (0.0-4.0); HEMATOCRIT 42.4 % (35.0-51.0); LYMPH # 2.5 K/uL (1.0-4.3); LYMPH % 23.9 % (20.0-40.0); MEAN CELL VOLUME 87.1 fl (80.0-94.0); MEAN CORPUSCULAR HEMOGLOBIN 29.9 pg (27.0-31.0); MEAN CORPUSCULAR HGB CONC 34.3 g/dL (33.0-37.0); MEAN PLATELET VOLUME 7.6 fl (7.2-11.7); MONO # 0.7 K/uL (0.0-0.8); MONO % 6.9 % (0.0-10.0); NEUT # 6.9 K/uL (1.8-7.0); NEUT % 64.9 % (50.0-75.0); RED CELL DISTRIBUTION WIDTH 13.3 % (11.5-14.5); WHITE BLOOD COUNT 10.6 K/uL (4.8-10.8)
[2016-12-17 06:54] LABS: ALKALINE PHOSPHATASE 49 U/L (38-126); ALT/SGPT 67 U/L (21-72); AST/SGOT 42 U/L (17-59); BILIRUBIN,TOTAL 0.5 mg/dl (0.2-1.3); BLOOD UREA NITROGEN 8 mg/dl (9-20); CALCIUM 9.7 mg/dL (8.4-10.2); CARBON DIOXIDE 28 mmol/L (22-30); CHLORIDE 101 mmol/L (98-107); GFR AFRICAN-AMERICAN > 60; GLUCOSE,RANDOM 89 mg/dL (75-110); POTASSIUM 4.5 MMOL/L (3.6-5.0); SODIUM 141 mmol/l (132-148); TOTAL PROTEIN 8.2 G/DL (6.3-8.2)
--- NOTE | 2016-12-17 07:24 | CON ---
DATE: 12/15/2016 REQUESTING PHYSICIAN: Dr. Diehl. REASON FOR CONSULTATION: Abdominal pain. HISTORY OF PRESENT ILLNESS: This is 36-year-old male with history of kidney stones, who comes in wit h abdominal pain and discomfort, basically, on a flight back to [place], was left lower quadrant. Has had diverticulitis before in [place], came back with some antibiotics which he states has not improved the pain, now comes in with diverticulitis again, possible perforated containment. The patient's evelio n is improved. He is currently lying in bed comfortable, in no apparent distress. PAST MEDICAL HISTORY: As above. PAST SURGICAL HISTORY: As above. MEDICATIONS: Have been reviewed. REVIEW OF SYSTEMS: All systems have been reviewed and are negative except for the positives in the H PI. PHYSICAL EXAMINATION: VITAL SIGNS: During the hospital course are grossly unremarkable. GENERAL: A pleasant middle-aged man lying in bed, comfortable, in no apparent distress. HEENT: Normocephalic, atraumatic. Eyes: Pupils equal, reactive without pallor or icterus. NECK: Supple, normal range of motion. No lymphadenopathy appreciated. LUNGS: Coarse breath sounds bilaterally. HEART: S1, S2, regular rate and rhythm, no murmurs appreciated. ABDOMEN: Soft, discomfort in the left lower quadrant. RECTAL: Deferred. EXTREMITIES: Pulses felt bilaterally. SKIN: Warm, dry and intact. NEUROLOGIC: Alert and oriented x 3. LABORATORY DATA: Labs reviewed. WBC of 14.1, improved from 16.7. C. difficile is negative. CAT sc an of the abdomen and pelvis basically shows sigmoid diverticulitis with an inferred concomitant perf oration small bowel, might be an early abscess. ASSESSMENT AND PLAN: This is a 36-year-old male with perforated diverticulitis. From a gastrointest inal standpoint, reviewed the films with radiology and discussed with surgery. Surgery thinks this i s more of just an inflammatory response of diverticulitis and fluid tracking. My recommendation is r epeat imaging in a few days after aggressive IV hydration. Will obviously need a colonoscopy at some point in 6-8 weeks and a surgical consultation . Pain control as needed. Thank you for the consult. Carlos Manuel Vale MD, PhD cc:Dr. Diehl [id number] TT: 12/16/2016 22:55:37 Confirmation # [id number] Dictation # [id number] dn 12/17/2016 06:23:32
[2016-12-17 08:12] VITALS: BP 155/88; PULSE 63; RESP 12; O2SAT 97
[2016-12-17] MEDS: Enoxaparin 40 mg Syringe SC SCH (08:33)
--- NOTE | 2016-12-17 08:47 | CP.PCM.PN ---
Subjective - Date & Time of Evaluation Date of Evaluation: 12/17/16 Time of Evaluation: 06:15 - Subjective Subjective: SURGERY NOTE FOR DR. HUMPHRIES 36M seen and examined at bedside. Patient states he feels good, denies pain, N/V /F/C. Tolerating diet. Having normal bowel movements. Objective - Vital Signs/Intake and Output Vital Signs (last 24 hours): Temp Pulse Resp BP Pulse Ox 97.4 F L 63 12 155/88 H 97 12/17/16 08:00 12/17/16 08:00 12/17/16 08:00 12/17/16 08:00 12/17/16 08:00 Intake and Output: 12/17/16 12/17/16 06:59 18:59 Intake Total 1325 Output Total 850 Balance 475 - Medications Medications: Current Medications Acetaminophen (Tylenol 325mg Tab) 650 mg PO Q6 PRN PRN Reason: Fever >100.4 F Last Admin: 12/14/16 09:35 Dose: 650 mg Enoxaparin Sodium (Lovenox) 40 mg SC DAILY [facility] PRN Reason: Protocol Last Admin: 12/17/16 08:33 Dose: 40 mg Famotidine (Pepcid) 20 mg IVP Q12 [facility] Last Admin: 12/17/16 08:34 Dose: 20 mg Lactated Ringer's (Lactated Ringer's) 1,000 mls @ 125 mls/hr IV .Q8H [facility] Last Admin: 12/17/16 06:14 Dose: 125 mls/hr Piperacillin Sod/Tazobactam (Sod 4.5 gm/ Sodium Chloride) 100 mls @ 100 mls/hr IVPB Q6 [facility] Last Admin: 12/17/16 04:00 Dose: 100 mls/hr Ondansetron HCl (Zofran Inj) 4 mg IVP Q6H PRN PRN Reason: Nausea/Vomiting - Labs Labs: 12/17/16 05:30 12/17/16 05:30 - Constitutional Appears: Non-toxic, No Acute Distress - Head Exam Head Exam: ATRAUMATIC - ENT Exam ENT Exam: Mucous Membranes Moist - Respiratory Exam Respiratory Exam: Clear to Ausculation Bilateral, NORMAL BREATHING PATTERN - Cardiovascular Exam Cardiovascular Exam: REGULAR RHYTHM, +S1, +S2 - GI/Abdominal Exam GI & Abdominal Exam: Soft. absent: Distended, Firm, Guarding, Rigid, Rebound Additional comments: very mildly tender in the LLQ Assessment and Plan - Assessment and Plan (Free Text) Assessment: 36 y.o. male with localized diverticulitis with perforation that sealed off. WBC now within normal limits Plan: - ADAT - Pain control - IV fluids - Continue antibiotics - will continue to monitor Further recs discuss with Dr. Ceasar Escobedo, PGY1
--- NOTE | 2016-12-17 11:05 | CP.PCM.DIS ---
Provider - Provider Date of Admission: 12/13/16 21:45 Attending physician: Rosanne Up MD Consults: surgery consult GI consult Time Spent in preparation of Discharge (in minutes): 20 Hospital Course - Lab Results Lab Results: Micro Results 12/14/16 Unknown Stool Ova and Parasite Concentrate Exam - Final Most Recent Lab Values WBC 10.6 K/uL (4.8-10.8) 12/17/16 05:30 RBC 4.87 Mil/uL (4.40-5.90) 12/17/16 05:30 Hgb 14.6 g/dL (12.0-18.0) 12/17/16 05:30 Hct 42.4 % (35.0-51.0) 12/17/16 05:30 MCV 87.1 fl (80.0-94.0) 12/17/16 05:30 MCH 29.9 pg (27.0-31.0) 12/17/16 05:30 MCHC 34.3 g/dL (33.0-37.0) 12/17/16 05:30 RDW 13.3 % (11.5-14.5) 12/17/16 05:30 Plt Count 393 K/uL (130-400) 12/17/16 05:30 MPV 7.6 fl (7.2-11.7) 12/17/16 05:30 Neut % (Auto) 64.9 % (50.0-75.0) 12/17/16 05:30 Lymph % (Auto) 23.9 % (20.0-40.0) 12/17/16 05:30 [place] % (Auto) 6.9 % (0.0-10.0) 12/17/16 05:30 Eos % (Auto) 3.4 % (0.0-4.0) 12/17/16 05:30 Baso % (Auto) 0.9 % (0.0-2.0) 12/17/16 05:30 Neut # 6.9 K/uL (1.8-7.0) 12/17/16 05:30 Lymph # 2.5 K/uL (1.0-4.3) 12/17/16 05:30 [place] # 0.7 K/uL (0.0-0.8) 12/17/16 05:30 Eos # 0.4 K/uL (0.0-0.7) 12/17/16 05:30 Baso # 0.1 K/uL (0.0-0.2) 12/17/16 05:30 Neutrophils % (Manual) 84 % (42-75) H 12/13/16 18:35 Lymphocytes % (Manual) 11 % (20-50) L 12/13/16 18:35 Monocytes % (Manual) 5 % (0-10) 12/13/16 18:35 Platelet Estimate Normal (NORMAL) 12/13/16 18:35 Large Platelets Present 12/13/16 18:35 Anisocytosis (manual) Slight 12/13/16 18:35 Tear Drop Cells Slight 12/13/16 18:35 Ovalocytes Slight 12/13/16 18:35 pO2 26 mm/Hg (30-55) L 12/13/16 18:40 VBG pH 7.46 (7.32-7.43) H 12/13/16 18:40 VBG pCO2 42 mmHg (40-60) 12/13/16 18:40 VBG HCO3 27.9 mmol/L 12/13/16 18:40 VBG Total CO2 31.2 mmol/L (22-28) H 12/13/16 18:40 VBG O2 Sat (Calc) 54.5 % (40-65) 12/13/16 18:40 VBG Base Excess 5.4 mmol/L (0.0-2.0) H 12/13/16 18:40 VBG Potassium 6.0 mmol/L (3.6-5.2) H 12/13/16 18:40 Sodium 133.0 mmol/L (132-148) 12/13/16 18:40 Chloride 101.0 mmol/L (98-107) 12/13/16 18:40 Glucose 110 mg/dL (75-110) 12/13/16 18:40 Lactate 1.3 mmol/L (0.7-2.1) 12/13/16 18:40 FiO2 21.0 % 12/13/16 18:40 Sodium 141 mmol/l (132-148) 12/17/16 05:30 Potassium 4.5 MMOL/L (3.6-5.0) 12/17/16 05:30 Chloride 101 mmol/L (98-107) 12/17/16 05:30 Carbon Dioxide 28 mmol/L (22-30) 12/17/16 05:30 Anion Gap 16 (10-20) 12/17/16 05:30 BUN 8 mg/dl (9-20) L 12/17/16 05:30 Creatinine 0.9 mg/dL (0.8-1.5) 12/17/16 05:30 Est GFR ( Amer) > 60 12/17/16 05:30 Est GFR (Non-Af Amer) > 60 12/17/16 05:30 Random Glucose 89 mg/dL (75-110) 12/17/16 05:30 Calcium 9.7 mg/dL (8.4-10.2) 12/17/16 05:30 Total Bilirubin 0.5 mg/dl (0.2-1.3) 12/17/16 05:30 AST 42 U/L (17-59) 12/17/16 05:30 ALT 67 U/L (21-72) 12/17/16 05:30 Alkaline Phosphatase 49 U/L (38-126) 12/17/16 05:30 Total Protein 8.2 G/DL (6.3-8.2) 12/17/16 05:30 Albumin 4.1 g/dL (3.5-5.0) 12/17/16 05:30 Globulin 4.0 gm/dL (2.2-3.9) H 12/17/16 05:30 Albumin/Globulin Ratio 1.0 (1.0-2.1) 12/17/16 05:30 Lipase 62 U/L (23-300) 12/13/16 18:35 Venous Blood Potassium 6.0 mmol/L (3.6-5.2) H 12/13/16 18:40 Urine Color Yellow (YELLOW) 12/13/16 18:40 Urine Clarity Slight-cloudy (Clear) 12/13/16 18:40 Urine pH 6.0 (5.0-8.0) 12/13/16 18:40 Ur Specific [place] 1.029 (1.003-1.030) 12/13/16 18:40 Urine Protein 30 mg/dL (NEGATIVE) 12/13/16 18:40 Urine Glucose (UA) Negative mg/dL (Normal) 12/13/16 18:40 Urine Ketones 80 mg/dL (NEGATIVE) 12/13/16 18:40 Urine Blood Moderate (NEGATIVE) 12/13/16 18:40 Urine Nitrate Negative (NEGATIVE) 12/13/16 18:40 Urine Bilirubin Negative (NEGATIVE) 12/13/16 18:40 Urine Urobilinogen 2.0 mg/dL (0.2-1.0) 12/13/16 18:40 Ur Leukocyte Esterase Trace Dora/uL (Negative) H 12/13/16 18:40 Urine RBC (Auto) 7 /hpf (0-3) H 12/13/16 18:40 Urine Microscopic WBC 3 /hpf (0-5) 12/13/16 18:40 Ur Squamous Epith Cells 1 /hpf (0-5) 12/13/16 18:40 Amorphous Sediment Few /ul (<OCC) H 12/13/16 18:40 Urine Bacteria Rare (<OCC) 12/13/16 18:40 Granular Casts (Auto) 1 /lpf (0-1) 12/13/16 18:40 C. difficile Ag & Toxin Negative (NEGATIVE) 12/14/16 Unknown - Hospital Course Hospital Course: 36 y/o gent with , no significant PMH, started having abdominal pain 5 days ago , went to [facility] and was diagnosed to have Diverticulitis and was sent home on PO antibiotics, came to our ED bec of severe abd pain. CT of abdomen showed Grossly abnormal small large bowel loops in this patient who is 6+ months status post appendectomy. The vast majority of the abnormal bowel loops appear mostly small bowel type -an intrinsic inflammatory bowel pathology here is 1 consideration -nevertheless the pericecal ileum is unremarkable. A sigmoid diverticulosis with inferred concomitant diverticulitis with perforation and fistulous tract to the small bowel loops also needs to be considered. Within the right anterior para central abnormal small-bowel loops is a 5 cm interloop fluid collection -an early abscess here needs to be considered. Patient was found to have elevated WBC count to 16 k. He was admitted , kept NPO , started on IVF, pain management and IV Zosyn. GI and surgery were consulted .Patient clinically showed improvement . His WBC count trended down to normal 10 K, afebrile, abdominal pain resolved , tolerating diet and having regular bowel movements.Patient would lik eto go home. Discussed with surgery and agree with patient being discharged on PO Cipro and Flagyl for 7 more day snad repeat Ct abdomen and pelvis with PO and iv contrast in 4 days. Counselled patient on diet, magistrate consulted for more guidance. will discharge patient home Informed patient that he will need proper follow up upon discharge with surgery and Gi. Colonoscopy is recommended 6 weeks later 1. Diverticulitis with abscess and contained perforation Discharge Exam - Head Exam Head Exam: ATRAUMATIC, NORMOCEPHALIC - Eye Exam Eye Exam: EOMI, Normal appearance, PERRL Pupil Exam: NORMAL ACCOMODATION - ENT Exam ENT Exam: Mucous Membranes Moist, Normal Exam - Neck Exam Neck exam: Full Rom - Respiratory Exam Respiratory Exam: Clear to PA & Lateral, Stridor, NORMAL BREATHING PATTERN, UNREMARKABLE. absent: Respiratory Distress - Cardiovascular Exam Cardiovascular Exam: REGULAR RHYTHM, +S1, +S2. absent: JVD - GI/Abdominal Exam GI & Abdominal Exam: Normal Bowel Sounds, Soft. absent: Distended, Guarding, Rebound, Tenderness - Rectal Exam Rectal Exam: Deferred - Extremities Exam Extremities exam: normal capillary refill, normal inspection, pedal pulses present - Back Exam Back exam: NORMAL INSPECTION - Neurological Exam Neurological exam: Alert, CN II-XII Intact, Oriented x3, Reflexes Normal - Psychiatric Exam Psychiatric exam: Normal Affect, Normal Mood - Skin Skin Exam: Dry, Intact, Normal Color, Warm Discharge Plan - Discharge Medications Prescriptions: Ciprofloxacin HCl [Cipro] 500 mg PO Q12 #14 tab Metronidazole [Flagyl] 500 mg PO Q8 #21 tab - Follow Up Plan Condition: GUARDED Disposition: HOME/ ROUTINE Patient education suggested?: Yes Instructions: Diverticulitis (DC), Diverticulitis Diet (DC), Perforated Bowel ( DC) Referrals: Michael Mcdonough MD [Staff Provider] - Carlos Manuel Vale MD, PhD [Staff Provider] -
[2016-12-17 12:13] VITALS: TEMP 98.4
== END 2016-12-17 14:01 | disposition home or self-care (01) | DRG 392 ==
LOC: H.ER 17:25 → H.EROBSV 18:17 → H.ERHOLD 21:45 → OBSVTOIN 21:45 → H.ICU/CCU 22:58
PROVIDERS: ADMIT Internal Medicine; ATTEND Internal Medicine
DX: K57.20 Diverticulitis of large intestine with perforation and abscess without bleeding (principal); I10 Essential (primary) hypertension; D72.829 Elevated white blood cell count, unspecified; Z87.442 Personal history of urinary calculi; Z90.49 Acquired absence of other specified parts of digestive tract